=== PATIENT | male | born 1960 | race Caucasian/White ===

== ENCOUNTER 2020-01-06 16:03 | Inpatient (IN) | payer MEDICAID ==
[~2020-01-06] VITALS: Ht 177.8 cm; Wt 86.0 kg
[~2020-01-06 16:03] MED LIST: HYDR-4383 PO; IBUP-1984 PO; PRED20TA PO
[2020-01-06 17:02] LABS: BASOPHILS % (AUTO) 0.2 % (0-1); EOSINOPHILS % (AUTO) 0.3 % (0-6); HEMATOCRIT 42.7 % (42.0-52.0); HEMOGLOBIN 14.1 g/dl (14.0-17.9); LYMPHOCYTES # (AUTO) 0.9 X10'3 (1.1-4.8); LYMPHOCYTES % (AUTO) 6.5 % (21-51); MEAN CORPUSCULAR HEMOGLOBIN 30.3 PG (27.0-31.0); MEAN CORPUSCULAR VOLUME 91.9 FL (78-98); MEAN PLATELET VOLUME 9.2 FL (7.4-10.4); MONOCYTES # (AUTO) 0.6 X10'3 (0-0.9); MONOCYTES % (AUTO) 4.6 % (2-12); NEUTROPHILS # (AUTO) 12.1 X10'3 (1.8-7.7); NEUTROPHILS % (AUTO) 88.4 % (42-75); PLATELET COUNT 203 X10'3 (140-440); RED BLOOD COUNT 4.65 X10'6 (4.70-6.10); RED CELL DISTRIBUTION WIDTH 13.9 % (11.5-14.5); WHITE BLOOD COUNT 13.7 X10'3 (4.5-11.0)
[2020-01-06 17:04] LABS: ALANINE AMINOTRANSFERASE 26 U/L (12-78); ALBUMIN 2.8 G/DL (3.4-5.0); ALBUMIN/GLOBULIN RATIO 0.6 (1.1-1.5); ALKALINE PHOSPHATASE 92 IU/L (46-116); ANION GAP 4 (8-16); ASPARTATE AMINO TRANSFERASE 21 U/L (10-37); BILIRUBIN,TOTAL 0.4 MG/DL (0.1-1.0); BLOOD UREA NITROGEN 15 MG/DL (7-18); CHLORIDE 100 MMOL/L (99-107); CREATININE 1.07 MG/DL (0.60-1.10); GLUCOSE 118 MG/DL (70-104); POTASSIUM 3.2 MMOL/L (3.5-5.1); SODIUM 131 MMOL/L (135-145); TOTAL CARBON DIOXIDE 27.2 MMOL/L (24-32); TOTAL PROTEIN 7.2 G/DL (6.4-8.2); eGFR 71 ML/MIN
[2020-01-06] MEDS ORDERED: piperacillin/tazo 3.375gm/50ml 50 ML IV ONE (17:35)
[2020-01-06] MEDS ORDERED: vancomycin/NS 1 GM ADD-VANTAGE 250 ML IV ONE (17:35)
[2020-01-06] MEDS ORDERED: normal saline 1000ML IV soln IV ONE (17:35)
[2020-01-06] MEDS ORDERED: DOXY100C76 PO (18:03)
[2020-01-06] MEDS ORDERED: CEPH250T PO (18:03)
[2020-01-06] MEDS ORDERED: LORazepam 2 mg/ml vial IV ONE (18:25)
[2020-01-06] MEDS ORDERED: NO HOME MEDS (18:38)
[2020-01-06] MEDS ORDERED: magnesium Cl slow-release 64mg tablet PO PRN (19:20)
[2020-01-06] MEDS ORDERED: ondansetron/PF 4mg/2ml inj IV PRN (19:20)
[2020-01-06] MEDS ORDERED: HYDROcodone/acetaminophen 5mg/325mg tablet PO PRN (19:20)
[2020-01-06] MEDS ORDERED: acetaminophen 325mg tablet PO PRN ×2 (19:20)
[2020-01-06] MEDS ORDERED: metoclopramide 5 mg/ml inj IV PRN (19:20)
[2020-01-06] MEDS ORDERED: acetaminophen 650mg rectal suppository RC PRN (19:20)
[2020-01-06] MEDS ORDERED: magnesium hydroxide 30ml (MOM) UD suspension PO PRN (19:20)
[2020-01-06] MEDS ORDERED: magnesium 2GM in 50ml NS 50 ML IV PRN (19:20)
[2020-01-06] MEDS ORDERED: potassium Cl 20 mEq SR tablet PO PRN ×2 (19:20)
[2020-01-06] MEDS ORDERED: bisacodyl 10mg suppository rectal RC PRN (19:20)
[2020-01-06] MEDS ORDERED: potassium CL 10mEq/100ml bag 100 ML IV PRN ×2 (19:20)
[2020-01-06] MEDS: normal saline 1000ml 1,000 ML IV SCH ×2 (19:20→21:47)
[2020-01-06] MEDS ORDERED: HYDROcodone/acetaminophen 10/325mg tab PO PRN (19:20)
[2020-01-06] MEDS ORDERED: magnesium 4gm in 100ml NS 100 ML IV PRN (19:20)
[2020-01-06] MEDS ORDERED: LORazepam 1 MG tablet PO PRN (19:20)
[2020-01-06] MEDS ORDERED: mag hydrox/Alum hydrox/simeth 30ml oral suspension PO PRN (19:20)
[2020-01-06] MEDS: K and/or MAG REPLACEMENT MC SCH (20:00)
--- NOTE | 2020-01-06 20:20 | NUR ---
Patient in room [facility]. I have received report from Cap RN and had the opportunity to ask questions and assume patient care. pt was asked about his belongings when he came to the room. pt stated he had a knife. I informed pt the knife would have to go with security. I looked through pts belongings. knife was sent with security, meds were sent to pharm to be stored and cigarettes and lighters went with security too.
[2020-01-06 21:00] VITALS: BP 180/99
[2020-01-06] MEDS ORDERED: temazepam 15mg capsule PO PRN (21:00)
[2020-01-06 23:45] VITALS: BP 150/75
[2020-01-07] MEDS: piperacillin/tazo 3.375gm/50ml 50 ML IV SCH ×4 (00:10→23:24)
[2020-01-07 04:58] LABS: BASOPHILS % (AUTO) 0.1 % (0-1); EOSINOPHILS % (AUTO) 0.3 % (0-6); HEMATOCRIT 39.2 % (42.0-52.0); HEMOGLOBIN 12.9 g/dl (14.0-17.9); LYMPHOCYTES # (AUTO) 1.1 X10'3 (1.1-4.8); LYMPHOCYTES % (AUTO) 8.5 % (21-51); MEAN CORPUSCULAR HGB CONC 32.8 g/dL (33.0-36.5); MEAN CORPUSCULAR VOLUME 91.5 FL (78-98); MEAN PLATELET VOLUME 9.5 FL (7.4-10.4); MONOCYTES # (AUTO) 0.9 X10'3 (0-0.9); MONOCYTES % (AUTO) 7.1 % (2-12); NEUTROPHILS # (AUTO) 10.7 X10'3 (1.8-7.7); PLATELET COUNT 182 X10'3 (140-440); RED BLOOD COUNT 4.28 X10'6 (4.70-6.10); WHITE BLOOD COUNT 12.7 X10'3 (4.5-11.0)
[2020-01-07 05:03] LABS: CLARITY,URINE CLEAR (Clear); COLOR,URINE YELLOW (Yellow); GLUCOSE, URINE NEGATIVE (Neg); KETONES,URINE NEGATIVE (Neg); LEUKOCYTE ESTERASE ,URINE NEGATIVE (Neg); NITRITES, URINE NEGATIVE (Neg); OCCULT BLOOD,URINE NEGATIVE (Neg); PROTEIN,URINE NEGATIVE (Neg); UROBILINOGEN,URINE >=8.0 E.U/dL (0.2-1.0)
[2020-01-07 05:09] LABS: URINE AMPHETAMINE SCREEN POSITIVE (Neg); URINE BARBITUATE SCREEN NEGATIVE (Neg); URINE BENZODIAZEPINES SCREEN NEGATIVE (Neg); URINE CANNABINOID SCREEN NEGATIVE (Neg); URINE COCAINE SCREEN NEGATIVE (Neg); URINE METHADONE SCREEN NEGATIVE (Neg); URINE OPIATE SCREEN POSITIVE (Neg); URINE PHENCYCLIDINE SCREEN NEGATIVE (Neg)
[2020-01-07 05:22] LABS: UA COLLECTION TYPE CLN CATCH MIDSTREAM
[2020-01-07 05:25] LABS: ALBUMIN 2.3 G/DL (3.4-5.0); ANION GAP 8 (8-16); BLOOD UREA NITROGEN 11 MG/DL (7-18); BUN/CREATININE RATIO 12.8 (5.4-32.0); CALCIUM 7.5 MG/DL (8.5-10.1); CHLORIDE 101 MMOL/L (99-107); CREATININE 0.86 MG/DL (0.60-1.10); GLUCOSE 95 MG/DL (70-104); SODIUM 133 MMOL/L (135-145); TOTAL CARBON DIOXIDE 24.5 MMOL/L (24-32); eGFR > 90 ML/MIN
[2020-01-07] MEDS ORDERED: vancomycin/NS 1 GM ADD-VANTAGE 250 ML IV SCH (06:00)
--- NOTE | 2020-01-07 06:40 | NUR ---
Problems reprioritized. Patient report given, questions answered & plan of care reviewed with Chreyl TOPETE.
[2020-01-07 07:32] VITALS: BP 145/74
[2020-01-07] MEDS: enoxaparin 40mg/0.4ml syringe SUBCUT SCH (07:34)
[2020-01-07] MEDS: K and/or MAG REPLACEMENT MC SCH ×2 (07:47→19:15)
--- NOTE | 2020-01-07 07:59 | NUR ---
PAGER ID: [phone] MESSAGE: gina pena 356B: pt c/o headache. he says aleve or advil works best for him... julius [id number]
[2020-01-07] MEDS: normal saline 1000ml 1,000 ML IV SCH ×2 (10:11→19:20)
[2020-01-07] MEDS: ibuprofen tablet 400 MG TABLET PO PRN ×2 (11:45→19:20)
[2020-01-07 11:54] VITALS: BP 146/77
--- NOTE | 2020-01-07 17:00 | NUR ---
unable to obtain 2nd IV access, 1600 dose of zosyn is infusing. 1700 dose of vanco is not compatible. pharmacy is not able to retime either of them. Addendum: 01/07/20 at 1711 by Cheryl Johnson RN will hang vanco as soon as possible.
--- NOTE | 2020-01-07 17:50 | NUR ---
page sent to [facility] Darcie Freire 356B : if you have time needs second iv access for abx. hard stick. thanks!
[2020-01-07 18:15] VITALS: BP 118/76
--- NOTE | 2020-01-07 18:24 | NUR ---
Problems reprioritized. Patient report given, questions answered & plan of care reviewed with EFREM Hawthorne.
--- NOTE | 2020-01-07 18:30 | NUR ---
Patient in room [facility]. I have received report from EFREM Luna and had the opportunity to ask questions and assume patient care.
[2020-01-07] MEDS: lactobacillus rhamnosus 10,000 MMU CELLS/CAPSULE PO SCH (19:20)
[2020-01-07] MEDS: VANCOmycin 1250MG/NS 250ml Bag 250 ML IV SCH (19:21)
[2020-01-08] VITALS: BP 133/76
[2020-01-08] MEDS: ibuprofen tablet 400 MG TABLET PO PRN ×2 (03:37→14:12)
[2020-01-08 05:23] LABS: BASOPHILS % (AUTO) 0.2 % (0-1); EOSINOPHILS # (AUTO) 0.1 X10'3 (0-0.9); EOSINOPHILS % (AUTO) 1.2 % (0-6); HEMATOCRIT 40.1 % (42.0-52.0); HEMOGLOBIN 13.3 g/dl (14.0-17.9); LYMPHOCYTES % (AUTO) 8.3 % (21-51); MEAN CORPUSCULAR HEMOGLOBIN 30.4 PG (27.0-31.0); MEAN CORPUSCULAR HGB CONC 33.2 g/dL (33.0-36.5); MEAN CORPUSCULAR VOLUME 91.6 FL (78-98); MEAN PLATELET VOLUME 9.4 FL (7.4-10.4); MONOCYTES # (AUTO) 0.6 X10'3 (0-0.9); MONOCYTES % (AUTO) 4.9 % (2-12); NEUTROPHILS % (AUTO) 85.4 % (42-75); PLATELET COUNT 194 X10'3 (140-440); RED BLOOD COUNT 4.37 X10'6 (4.70-6.10); RED CELL DISTRIBUTION WIDTH 14.4 % (11.5-14.5); WHITE BLOOD COUNT 11.7 X10'3 (4.5-11.0)
[2020-01-08] MEDS: normal saline 1000ml 1,000 ML IV SCH (05:23)
[2020-01-08] MEDS: VANCOmycin 1250MG/NS 250ml Bag 250 ML IV SCH (05:23)
[2020-01-08 05:54] LABS: ALBUMIN 2.2 G/DL (3.4-5.0); ANION GAP 10 (8-16); BLOOD UREA NITROGEN 12 MG/DL (7-18); BUN/CREATININE RATIO 14.8 (5.4-32.0); CALCIUM 7.7 MG/DL (8.5-10.1); CHLORIDE 103 MMOL/L (99-107); CREATININE 0.81 MG/DL (0.60-1.10); GLUCOSE 135 MG/DL (70-104); POTASSIUM 3.7 MMOL/L (3.5-5.1); SODIUM 137 MMOL/L (135-145); TOTAL CARBON DIOXIDE 24.3 MMOL/L (24-32); eGFR > 90 ML/MIN
--- NOTE | 2020-01-08 06:28 | NUR ---
Patient in room [facility]. I have received report from EFREM Hawthorne and had the opportunity to ask questions and assume patient care.
--- NOTE | 2020-01-08 06:42 | NUR ---
Problems reprioritized. Patient report given, questions answered & plan of care reviewed with EFREM Jones.
[2020-01-08 07:00] VITALS: BP 170/87
[2020-01-08] MEDS: enoxaparin 40mg/0.4ml syringe SUBCUT SCH (07:44)
[2020-01-08] MEDS: piperacillin/tazo 3.375gm/50ml 50 ML IV SCH (07:46)
[2020-01-08] MEDS: lactobacillus rhamnosus 10,000 MMU CELLS/CAPSULE PO SCH (07:47)
[2020-01-08] MEDS: K and/or MAG REPLACEMENT MC SCH (08:00)
[2020-01-08] MEDS ORDERED: enoxaparin 40mg/0.4ml syringe SUBCUT SCH (08:00)
[2020-01-08 11:00] VITALS: BP 165/99
[2020-01-08] MEDS ORDERED: AMOX-580 PO (13:28)
--- NOTE | 2020-01-08 16:09 | NUR ---
Pt discharged to home at 1505, with all belongings, in private vehicle. Discharge instructions and medications reviewed. New prescription e-scripted to [facility] on [address]. Pt instructed to return to ED if symptoms return, and to complete entire course of antibiotics, as directed. Pt home medications returned to pt from pharmacy. Pt escorted to front [facility] via wheelchair by student RN.
[2020-01-09] MEDS ORDERED: VANCOMYCIN LEVEL IV ONE (04:30)
== END 2020-01-08 15:15 | disposition home or self-care (01) | DRG 720 ==
LOC: ER 16:03 → ED HOLD 19:18 → SUR 3N 20:30
PROVIDERS: ADMIT Family Medicine; ATTEND Family Medicine
DX: A41.9 Sepsis, unspecified organism (principal); L03.115 Cellulitis of right lower limb; E87.1 Hypo-osmolality and hyponatremia; E87.6 Hypokalemia; Z59.0 Homelessness
CPT/HCPCS: 36415; 71045; 76937; 80048; 80053; 80305; 81003; 83605; 83735; 84145; 85025; 87040; 87081; 93971; 99285; G0378; J1650; J2060; J2543; J3370; J7030